=== PATIENT | female | born 1965 | race Caucasian/White ===

== ENCOUNTER 2018-06-06 18:50 | Inpatient (IN) | payer OTHER ==
[~2018-06-06] VITALS: Ht 160 cm; Wt 64.0 kg
[2018-06-06 18:55] VITALS: Ht 160 cm; Wt 64.0 kg
[2018-06-06 22:08] LABS: microscopic required? NO
[2018-06-06 22:14] LABS: BASOPHIL % 0.2 % (0-2); PLATELET COUNT 307 x10^3mcL (130-400)
[2018-06-06 22:15] LABS: RED CELL DISTRIBUTION WIDTH 15.6 % (11.5-14.5)
[2018-06-06 22:22] LABS: UA SPECIFIC GRAVITY 1.015 (1.005-1.035); urine erythrocyte NEGATIVE (NEGATIVE)
[2018-06-06 22:24] LABS: CARBON DIOXIDE 26.2 mmol/L (21-32); CHLORIDE SERUM 104 mmol/L (98-107); CREATININE SERUM 0.7 mg/dL (0.6-1.0); GFR1 > 60 mL/min; GLUCOSE SERUM 105 mg/dL (74-106); POTASSIUM SERUM 3.6 mmol/L (3.5-5.1); SODIUM SERUM 143 mmol/L (136-145)
[2018-06-06 22:31] LABS: AMPHETAMINE QUAL UR NONE DETECTED (See below)
[2018-06-06 22:37] LABS: ALBUMIN 3.5 g/dL (3.4-5.0); ALKALINE PHOSPHATASE 90 U/L (46-116); ALT/SGPT 52 U/L (14-59); AST/SGOT 44 U/L (15-37); BILIRUBIN TOTAL 0.2 mg/dL (0.20-1.00); FREE T4 0.98 ng/dL (0.76-1.46); TOTAL PROTEIN, SERUM 7.5 g/dL (6.4-8.2)
[2018-06-07 04:49] LABS: BASOPHIL % 0.2 % (0-2); PLATELET COUNT 302 x10^3mcL (130-400)
[2018-06-07 04:50] LABS: RED CELL DISTRIBUTION WIDTH 15.2 % (11.5-14.5)
[2018-06-07 05:37] LABS: CHOLESTEROL/HDL RATIO 3.3
[2018-06-07 05:50] LABS: CALCIUM 8.8 mg/dL (8.5-10.1); CHLORIDE SERUM 107 mmol/L (98-107); CREATININE SERUM 0.9 mg/dL (0.6-1.0); GFR1 > 60 mL/min; GLUCOSE SERUM 141 mg/dL (74-106); MAGNESIUM 1.8 mg/dL (1.8-2.4); PHOSPHOROUS 3.3 mg/dL (2.5-4.9); POTASSIUM SERUM 3.4 mmol/L (3.5-5.1); SODIUM SERUM 142 mmol/L (136-145)
[2018-06-07 13:15] VITALS: BP 137/77; BP 97/57
[2018-06-07 17:30] VITALS: BP 95/56
[2018-06-07 21:50] VITALS: BP 104/60
[2018-06-08 05:45] VITALS: BP 104/60
[2018-06-08 07:05] LABS: BASOPHIL % 0.3 % (0-2); PLATELET COUNT 258 x10^3mcL (130-400)
[2018-06-08 07:10] LABS: CALCIUM 8.6 mg/dL (8.5-10.1); CARBON DIOXIDE 25.1 mmol/L (21-32); CHLORIDE SERUM 107 mmol/L (98-107); CREATININE SERUM 0.7 mg/dL (0.6-1.0); GFR1 > 60 mL/min; GLUCOSE SERUM 110 mg/dL (74-106); MAGNESIUM 1.9 mg/dL (1.8-2.4); PHOSPHOROUS 3.1 mg/dL (2.5-4.9); POTASSIUM SERUM 4.6 mmol/L (3.5-5.1); SODIUM SERUM 141 mmol/L (136-145)
[2018-06-08 07:34] LABS: RED CELL DISTRIBUTION WIDTH 15.5 % (11.5-14.5)
[2018-06-08 10:15] VITALS: BP 112/65
[2018-06-08] MEDS ORDERED: METOPROLOL TART25 M1 PO (12:09)
[2018-06-08] MEDS ORDERED: ZES5 PO (12:10)
[2018-06-08] MEDS ORDERED: ECO81 PO (12:10)
[2018-06-08] MEDS ORDERED: MECLIZINE HCL12.5 MG PO (12:11)
[2018-06-08] MEDS ORDERED: MECLIZINE HYDRO25 M1 PO (12:22)
[2018-06-08 12:58] VITALS: BP 115/50
== END 2018-06-08 16:25 | disposition home or self-care (01) | DRG 74 ==
LOC: ED 18:50 → DU 06-07 02:18
PROVIDERS: Emergency Medicine; ADMIT Family Medicine
DX: G90.8 Other disorders of autonomic nervous system (principal); F41.9 Anxiety disorder, unspecified; I10 Essential (primary) hypertension; E87.6 Hypokalemia; D72.829 Elevated white blood cell count, unspecified; F32.9 Major depressive disorder, single episode, unspecified; R07.89 Other chest pain; Z98.51 Tubal ligation status; Z84.89 Family history of other specified conditions; Z79.899 Other long term (current) drug therapy
CPT/HCPCS: 83880; 84439; J7030; J8597; Q0092